=== PATIENT | male | born 1950 | race Hispanic/Latino ===

== ENCOUNTER 2018-02-23 13:17 | Inpatient (IN) | payer MEDICARE, OTHER ==
[~2018-02-23] VITALS: Ht 175.3 cm; Wt 102.0 kg
[2018-02-23 13:53] LABS: BASOPHILS % (AUTO) 0.1 % (0.0-5.0); EOSINOPHILS % (AUTO) 0.1 % (0.0-8.0); HEMATOCRIT 38.1 % (42-54); LYMPHOCYTES % (AUTO) 2.9 % (21.0-51.0); MEAN CORPUSCULAR HEMOGLOBIN 30.3 pg (27.0-33.0); MEAN CORPUSCULAR HGB CONC 33.2 g/dL (32.0-36.0); MEAN CORPUSCULAR VOLUME 91.5 fL (79-99); MONOCYTES % (AUTO) 3.4 % (3.0-13.0); NEUTROPHILS % (AUTO) 93.5 % (40.0-77.0); PLATELET COUNT (AUTO) 169 K/uL (130-400); RED BLOOD CELL COUNT(AUTO) 4.17 MIL/uL (4.50-6.20); RED CELL DISTRIBUTION WIDTH 14.3 % (11.0-15.5); WHITE BLOOD COUNT (AUTO) 19.7 K/uL (4.8-10.8)
[2018-02-23 14:16] LABS: POTASSIUM 3.6 mmol/L (3.5-5.1)
[2018-02-23] MEDS ORDERED: SODIUM CHLORIDE 0.9% 1000ML 1,000 ML IV ONE ×2 (14:18→17:47)
[2018-02-23 14:19] LABS: APPEARANCE,URINE Turbid (CLEAR); BILIRUBIN,URINE Small (NEGATIVE); COLOR,URINE Dark Yellow (YELLOW); GLUCOSE, URINE (UA) Negative (NEGATIVE); KETONES,URINE Trace mg/dL (NEGATIVE); LEUKOCYTE ESTERASE ,URINE Small (NEGATIVE); NITRATE,URINE Negative (NEGATIVE); OCCULT BLOOD,URINE Large (NEGATIVE); PROTEIN,URINE POS 1+ (NEGATIVE)
[2018-02-23 14:22] LABS: BILIRUBIN,TOTAL 0.9 mg/dL (0.2-1.0)
[2018-02-23 14:24] LABS: CREATININE 3.8 mg/dL (0.5-1.5); TOTAL PROTEIN, SERUM 9.1 g/dL (6.0-8.3)
[2018-02-23 14:33] LABS: AMORPHOUS SEDIMENT,UR Moderate /LPF (None Seen); BACTERIA,URINE Moderate /HPF (None Seen)
[2018-02-23] MEDS: ZOSYN 3.375GM+NS 50ML 50 ML IV SCH (18:00)
[2018-02-23] MEDS ORDERED: ZOSYN 3.375GM+NS 50ML 50 ML IV ONE (18:03)
[2018-02-23] MEDS ORDERED: SODIUM CHLORIDE 0.9% 50 ML IV ONE (18:04)
[2018-02-23 19:30] VITALS: BP 127/75
[2018-02-23] MEDS: LEVOFLOXACIN 250 MG/D5W 50ML 50 ML IVPB SCH (20:25)
[2018-02-23] MEDS: SODIUM CHLORIDE 0.9% 1000ML 1,000 ML IV SCH (20:31)
[2018-02-23] MEDS ORDERED: LOSA50TA25 PO (22:37)
[2018-02-23] MEDS ORDERED: LEVO50TA11 PO (22:37)
[2018-02-23] MEDS ORDERED: ATOR20TA65 PO (22:37)
[2018-02-24] VITALS (7 sets, daily range): BP systolic 99–133; BP diastolic 61–75
[2018-02-24] MEDS: ZOSYN 3.375GM+NS 50ML 50 ML IV SCH ×3 (01:18→17:07)
[2018-02-24] MEDS: SODIUM CHLORIDE 0.9% 1000ML 1,000 ML IV SCH ×4 (03:23→23:19)
[2018-02-24 05:46] LABS: HEMATOCRIT 30.5 % (42-54); MEAN CORPUSCULAR HEMOGLOBIN 31.4 pg (27.0-33.0); MEAN CORPUSCULAR HGB CONC 34.4 g/dL (32.0-36.0); MEAN CORPUSCULAR VOLUME 91.3 fL (79-99); PLATELET COUNT (AUTO) 182 K/uL (130-400); RED BLOOD CELL COUNT(AUTO) 3.34 MIL/uL (4.50-6.20); RED CELL DISTRIBUTION WIDTH 14.1 % (11.0-15.5); WHITE BLOOD COUNT (AUTO) 13.1 K/uL (4.8-10.8)
[2018-02-24 06:04] LABS: BILIRUBIN,TOTAL 0.9 mg/dL (0.2-1.0); CREATININE 2.2 mg/dL (0.5-1.5); POTASSIUM 3.2 mmol/L (3.5-5.1); TOTAL PROTEIN, SERUM 6.7 g/dL (6.0-8.3)
[2018-02-24] MEDS: PANTOPRAZOLE SODIUM 40 MG TABLET.DR PO SCH (09:04)
[2018-02-24] MEDS: ACETAMINOPHEN 325 MG TAB PO PRN ×2 (10:05→15:16)
[2018-02-24] MEDS ORDERED: LOPERAMIDE HCL 2 MG CAP PO SCH (16:30)
[2018-02-24] MEDS: KETOROLAC TROMETHAMINE 15MG/ML IV PRN (16:58)
[2018-02-24] MEDS: LEVOFLOXACIN 250 MG/D5W 50ML 50 ML IVPB SCH (16:59)
[2018-02-25] MEDS: ZOSYN 3.375GM+NS 50ML 50 ML IV SCH ×3 (01:09→17:04)
[2018-02-25] MEDS ORDERED: POTASSIUM CHLORIDE 10MEQ/100ML 100 ML IV PRN (03:30)
[2018-02-25] MEDS ORDERED: POTASSIUM CHLORIDE 10% ELIXIR 20 MEQ/15 ML UDCUP PO PRN (03:30)
[2018-02-25] MEDS ORDERED: LIDOCAINE HCL-MPF 1% 2ML VIAL IVP PRN (03:30)
[2018-02-25] MEDS: SODIUM CHLORIDE 0.9% 1000ML 1,000 ML IV SCH ×4 (03:36→23:53)
[2018-02-25 03:38] VITALS: BP 116/71
[2018-02-25] MEDS: KETOROLAC TROMETHAMINE 15MG/ML IV PRN ×2 (03:43→12:33)
[2018-02-25 05:04] LABS: HEMATOCRIT 30.1 % (42-54); MEAN CORPUSCULAR HEMOGLOBIN 31.1 pg (27.0-33.0); MEAN CORPUSCULAR HGB CONC 33.9 g/dL (32.0-36.0); MEAN CORPUSCULAR VOLUME 91.6 fL (79-99); PLATELET COUNT (AUTO) 167 K/uL (130-400); RED BLOOD CELL COUNT(AUTO) 3.29 MIL/uL (4.50-6.20); RED CELL DISTRIBUTION WIDTH 14.9 % (11.0-15.5); WHITE BLOOD COUNT (AUTO) 10.6 K/uL (4.8-10.8)
[2018-02-25 05:20] LABS: MAGNESIUM 2.2 mg/dL (1.80-2.40); PHOSPHORUS 2.7 mg/dL (2.5-4.9); URIC ACID 4.5 mg/dL (2.6-7.2)
[2018-02-25 06:33] LABS: CREATININE 1.6 mg/dL (0.5-1.5); POTASSIUM 3.6 mmol/L (3.5-5.1)
[2018-02-25] MEDS: LEVOTHYROXINE 50 MCG TABLET PO SCH (06:53)
[2018-02-25] MEDS: POTASSIUM CHLORIDE 20 MEQ ERTAB PO PRN ×2 (06:54→17:48)
[2018-02-25 08:18] VITALS: BP 126/76
[2018-02-25] MEDS: THIAMINE HCL 100 MG/ML 2ML VIAL IVP SCH (08:54)
[2018-02-25] MEDS: PANTOPRAZOLE SODIUM 40 MG TABLET.DR PO SCH (08:55)
[2018-02-25] MEDS: FOLIC ACID/VITAMIN B COMP W-C 1 MG CAPSULE PO SCH (08:55)
[2018-02-25] MEDS ORDERED: LOSARTAN 50 MG TABLET PO SCH (09:00)
[2018-02-25 11:26] VITALS: BP 139/72
[2018-02-25 16:39] VITALS: BP 127/74
[2018-02-25] MEDS: LEVOFLOXACIN 250 MG/D5W 50ML 50 ML IVPB SCH (16:56)
[2018-02-25 19:19] VITALS: BP 134/76
[2018-02-25] MEDS ORDERED: ATORVASTATIN CALCIUM 20 MG TABLET PO SCH (21:00)
[2018-02-25 23:26] VITALS: BP 133/65
[2018-02-26] MEDS: ZOSYN 3.375GM+NS 50ML 50 ML IV SCH ×2 (02:19→10:37)
[2018-02-26 03:50] VITALS: BP 144/86
[2018-02-26] MEDS: SODIUM CHLORIDE 0.9% 1000ML 1,000 ML IV SCH (05:01)
[2018-02-26 05:23] LABS: BASOPHILS % (AUTO) 0.5 % (0.0-5.0); EOSINOPHILS % (AUTO) 6.8 % (0.0-8.0); HEMATOCRIT 29.7 % (42-54); LYMPHOCYTES % (AUTO) 7.4 % (21.0-51.0); MEAN CORPUSCULAR HEMOGLOBIN 31.9 pg (27.0-33.0); MEAN CORPUSCULAR HGB CONC 34.9 g/dL (32.0-36.0); MEAN CORPUSCULAR VOLUME 91.5 fL (79-99); MONOCYTES % (AUTO) 8.4 % (3.0-13.0); NEUTROPHILS % (AUTO) 76.9 % (40.0-77.0); PLATELET COUNT (AUTO) 227 K/uL (130-400); RED BLOOD CELL COUNT(AUTO) 3.25 MIL/uL (4.50-6.20); RED CELL DISTRIBUTION WIDTH 14.8 % (11.0-15.5); WHITE BLOOD COUNT (AUTO) 11.1 K/uL (4.8-10.8)
[2018-02-26 05:39] LABS: ALBUMIN 1.9 g/dL (3.5-5.0); BILIRUBIN,TOTAL 0.7 mg/dL (0.2-1.0); CREATININE 1.2 mg/dL (0.5-1.5); POTASSIUM 3.5 mmol/L (3.5-5.1); TOTAL PROTEIN, SERUM 6.3 g/dL (6.0-8.3)
[2018-02-26] MEDS: LEVOTHYROXINE 50 MCG TABLET PO SCH (06:03)
[2018-02-26] MEDS: POTASSIUM CHLORIDE 20 MEQ ERTAB PO PRN (06:03)
[2018-02-26 08:00] VITALS: BP 151/82
[2018-02-26] MEDS: FOLIC ACID/VITAMIN B COMP W-C 1 MG CAPSULE PO SCH (08:52)
[2018-02-26] MEDS: THIAMINE HCL 100 MG/ML 2ML VIAL IVP SCH (08:52)
[2018-02-26] MEDS: PANTOPRAZOLE SODIUM 40 MG TABLET.DR PO SCH (08:52)
[2018-02-26 12:00] VITALS: BP 125/75
[2018-02-26] MEDS ORDERED: LEVO500T2 PO (12:22)
[2018-02-26] MEDS ORDERED: AMLO5TAB7 PO ×2 (14:15→14:20)
[2018-02-26 15:46] VITALS: BP 137/78
[2018-02-26] MEDS ORDERED: AMLODIPINE BESYLATE 5 MG TAB PO SCH (15:46)
== END 2018-02-26 18:57 | disposition home or self-care (01) | DRG 871 ==
LOC: EDH 13:17 → EDHIP 17:10 → 3DH 19:12
PROVIDERS: ADMIT Hospitalist; ATTEND Hospitalist
DX: A41.50 Gram-negative sepsis, unspecified (principal); R65.21 Severe sepsis with septic shock; N17.0 Acute kidney failure with tubular necrosis; N39.0 Urinary tract infection, site not specified; E87.1 Hypo-osmolality and hyponatremia; E87.2 Acidosis; E66.9 Obesity, unspecified; D64.9 Anemia, unspecified; E03.9 Hypothyroidism, unspecified; E78.5 Hyperlipidemia, unspecified; E87.6 Hypokalemia; I10 Essential (primary) hypertension; R16.0 Hepatomegaly, not elsewhere classified; E86.0 Dehydration; K76.0 Fatty (change of) liver, not elsewhere classified; Z68.33 Body mass index [BMI] 33.0-33.9, adult; Z92.21 Personal history of antineoplastic chemotherapy; Z85.038 Personal history of other malignant neoplasm of large intestine; Z83.3 Family history of diabetes mellitus
CPT/HCPCS: 36415; 76700; 80048; 80053; 81001; 83605; 83735; 84100; 84550; 85025; 85027; 87040; 87088; 87324; 93005; C9113; J1885; J1956; J2543; J3411; J7030